=== PATIENT | female | born 1975 | race Caucasian/White ===

== ENCOUNTER → 2016-06-08 | Outpatient (CLI) | payer BC ==
[~2016-06-08] MED LIST: METFORMIN; PHENERGAN PO; PROTONIX PO; URIBEL CAPSULE1 EACH PO
--- NOTE | ~2016-06-08 | US48 ---
[facility] A Service of [facility] RADIOLOGY TEXT RESULTS PATIENT: YEMI BRUCE LOCATION: SGUS : 75 UNIT #: [id number] AGE: [address]: Giancarlo Barajas MD SEX: F ORDER DR: [id number] [address] [address] [id number] O MR#: [id number] Acc #: [id number] NAME: YEMI BRUCE : 1975 SEX: F STUDY DATE/TIME: 06/08/2016 9:36 UNIT: SGUS ROOM: STUDY DESCRIPTION: US Extremity Anatomic Specific Attending Physician: Giancarlo Barajas M.D. Referring Physician: Giancarlo Barajas M.D. Ordering Physician: Giancarlo Barajas M.D. Primary Care Physician: Giancarlo Barajas M.D. MEDICAL IMAGING REPORT This report is preliminary unless electronic signature is present. EXAM Ultrasound of the right leg soft tissue. HISTORY Patient reports small lumps felt on the lower leg adjacent to the tibia for 4 months. She has had prior x-rays performed at [facility] that do not show any abnormality in this area. Patient herself was unable to clearly identified the site on today's study. TECHNIQUE Jay-scale and color Doppler sonographic images were obtained through the area of concern. FINDINGS No abnormality is identified in the area of concern. I do not see any solid or cystic masses, and no fluid collections are identified. IMPRESSION Negative Dictated by... Alexandria Paredes M.D. THIS IS AN ELECTRONICALLY VERIFIED REPORT Alexandria Paredes M.D. at 06/09/2016 10:37 AM AFF/guille TD: 06/08/2016 18:43 JOB #: [id number] MEDICAL IMAGING REPORT [facility] A Service [facility] RADIOLOGY TEXT RESULTS PATIENT: YEMI BRUCE LOCATION: SGUS : 75 UNIT #: [id number] AGE: [address]: Giancarlo Barajas MD SEX: F ORDER DR: Page 1 of 1
== END | disposition home or self-care (01) ==
LOC: SGUS 09:23
DX: L08.9 Local infection of the skin and subcutaneous tissue, unspecified (principal)
CPT/HCPCS: 76882